=== PATIENT | male | born 1965 | race Two or more races ===

== ENCOUNTER 2022-10-13 17:28 | Emergency (ER) | payer MEDICAID ==
[~2022-10-13] VITALS: Ht 177.8 cm; Wt 109.8 kg
[2022-10-13 17:38] VITALS: BP 145/98
[2022-10-13] MEDS ORDERED: KETOROLAC 30 MG/ML VIAL IM ONE (18:20)
[2022-10-13] MEDS ORDERED: NAPR-1704 PO (18:37)
[2022-10-13] MEDS ORDERED: LIDO1ADH53 TP (18:37)
[2022-10-13] MEDS ORDERED: PRED20TA5 PO (18:37)
[2022-10-13 18:53] VITALS: BP 145/98
--- NOTE | 2022-10-13 18:53 | NUR ---
Patient discharged with v/s stable. Written and verbal after care instructions given and explained. Patient alert, oriented and verbalized understanding of instructions. Ambulatory with steady gait. All questions addressed prior to discharge. ID band removed. Patient advised to follow up with PMD. Rx of NAPROXEN, LIDOCAINE, DELTASONE (SENT) given. Patient educated on indication of medication including possible reaction and side effects. Opportunity to ask questions provided and answered.
== END 2022-10-13 18:53 | disposition home or self-care (01) ==
LOC: MED 17:28
DX: M54.32 Sciatica, left side (principal); Z79.899 Other long term (current) drug therapy
CPT/HCPCS: 96372; 99283; J1885

== ENCOUNTER 2023-08-14 06:54 | Emergency (ER) | payer SELFPAY ==
[~2023-08-14] VITALS: Ht 177.8 cm; Wt 113.4 kg
[~2023-08-14 06:54] MED LIST: LIDO1ADH53 TP; NAPR-1704 PO; PRED20TA5 PO
[2023-08-14 07:07] VITALS: BP 156/106; PULSE 90; RESP 18; TEMP 97.4; O2SAT 96
[2023-08-14] MEDS: KETOROLAC 30 MG/ML VIAL IM ONE (07:53)
[2023-08-14] MEDS: methocarbamoL 500 MG TAB PO STA (07:55)
[2023-08-14] MEDS: predniSONE 20 MG TAB PO ONE (07:55)
[2023-08-14] MEDS: LIDOCAINE 5% 1 EA PATCH TP ONE (07:56)
[2023-08-14] MEDS ORDERED: LID5T TP (07:58)
[2023-08-14] MEDS ORDERED: PRED20TA5 PO (07:58)
[2023-08-14] MEDS ORDERED: METH-1681 PO (07:58)
[2023-08-14] MEDS ORDERED: IBUP-2213 PO (07:58)
[2023-08-14 08:10] VITALS: BP 156/106; PULSE 90; RESP 18; TEMP 97.4; O2SAT 96
== END 2023-08-14 08:10 | disposition home or self-care (01) ==
LOC: MED 06:54
DX: M54.16 Radiculopathy, lumbar region (principal); M54.50 Low back pain, unspecified; Z79.899 Other long term (current) drug therapy
CPT/HCPCS: 96372; 99284; J1885; J7512